=== PATIENT | male | born 1985 | race Two or more races ===

== ENCOUNTER → 2017-09-01 | Emergency (ER) | payer OTHER ==
[~2017-09-01] VITALS: Ht 180.3 cm; Wt 85.3 kg
[~2017-09-01] MED LIST: CARAFATE SU1 G/10 ML PO; LOSARTAN POTASS25 MG; PEPCID40 MG PO; ZANTAC150 M3 PO
== END | disposition home or self-care (01) ==
LOC: ER 17:53
DX: K29.70 Gastritis, unspecified, without bleeding (principal); K21.9 Gastro-esophageal reflux disease without esophagitis

== ENCOUNTER 2018-04-22 14:16 | Emergency (ER) | payer OTHER ==
[~2018-04-22] VITALS: Ht 180.3 cm; Wt 87.5 kg
== END 2018-04-22 15:57 | disposition home or self-care (01) ==
LOC: ER 14:16
DX: R00.2 Palpitations (principal)

== ENCOUNTER 2020-02-18 12:42 | Emergency (ER) | payer OTHER ==
[~2020-02-18] VITALS: Ht 180.3 cm; Wt 88.9 kg
== END 2020-02-18 16:32 | disposition home or self-care (01) ==
LOC: ER 12:42
DX: K29.60 Other gastritis without bleeding (principal); R00.2 Palpitations; F06.4 Anxiety disorder due to known physiological condition; Z20.828 Contact with and (suspected) exposure to other viral communicable diseases